=== PATIENT | female | born 1970 | race Caucasian/White ===

== ENCOUNTER 2020-12-20 10:25 | Outpatient (REF) | payer OTHER, SELFPAY ==
[2020-12-20 13:43] LABS: MANUAL DIFF FLAG NO
[2020-12-20 13:58] LABS: Basophils Percent Auto 0.3 % (0-2); Eosinophils Absolute Auto 0.2 X10*3/uL (0.0-0.4); Eosinophils Percent Auto 2.7 % (0-4); Hematocrit 43.4 % (37-47); Hemoglobin 13.9 g/dl (12.0-16.0); Imm Gran Abs Auto 0.04 X10*3/uL (0.00-0.03); Imm Gran Pct Auto 0.4 % (0.0-0.4); Lymphocytes Percent Auto 33.2 % (20-40); Mean Corpuscular Hemoglobin 29.4 pg (27.0-33.0); Mean Corpuscular Volume 91.8 fL (80-98); Mean Platelet Volume 9.1 fL (9.4-12.3); Monocytes Absolute Auto 0.6 X10*3/uL (0.1-1.2); Monocytes Percent Auto 6.1 % (2-11); Neutrophils Absolute Auto 5.2 X10*3/uL (2.0-8.3); Neutrophils Percent Auto 57.3 % (45-73); Platelet Count 381 X10*3/uL (160-400); Red Blood Count 4.73 X10*6/uL (4.20-5.50); Red Cell Distribution Width 13.7 % (11.0-16.0)
[2020-12-20 14:37] LABS: Alanine Aminotransferase 15 U/L (0-31); Albumin Level 4.1 g/dL (3.5-5.0); Alkaline Phosphatase 101 U/L (39-117); Anion Gap 11 (12-20); Aspartate Amino Transferase 17 U/L (5-31); Bilirubin Total 0.5 mg/dL (0.0-1.0); Blood Urea Nitrogen 10 mg/dL (9-16); Calcium 8.8 mg/dL (8.4-10.2); Carbon Dioxide 28 mmol/L (22-29); Chloride 102 mmol/L (96-108); Cholesterol 199 mg/dL; Estimated Glomerular Filt Rate > 60; Glucose Fasting 78 mg/dL (60-99); HDL Cholesterol 40 mg/dL; LDL Cholesterol Calculated 130 mg/dl; Potassium 4.6 mmol/L (3.3-5.1); Sodium 136 mmol/L (135-145); Total Protein 7.1 g/dL (6.5-8.0); Triglycerides 145 mg/dL
[2020-12-20 15:10] LABS: Free T4 (Free Thyroxine) 1.35 ng/dL (0.71-1.85); Thyroid Stimulating Hormone 0.43 uIU/mL (0.32-4.0)
[2020-12-21 05:27] LABS: Thyroid Peroxidase Antibodies 352 IU/mL (<9)
== END 2020-12-20 10:26 | disposition home or self-care (01) ==
LOC: HO.10HDL 10:25
PROVIDERS: Visit Provider Internal Medicine
DX: Z00.00 Encounter for general adult medical examination without abnormal findings (principal); E03.9 Hypothyroidism, unspecified
CPT/HCPCS: 36415; 80053; 80061; 84439; 84443; 85025; 86376

== ENCOUNTER 2021-01-15 15:22 | Outpatient (REF) | payer OTHER, SELFPAY ==
--- NOTE | ~2021-01-15 | MM_ITS ---
EXAMINATION: MM SCREENING DIGITAL BREAST TOMOSYNTHESIS, BILATERAL CLINICAL INFORMATION: Screening. Asymptomatic. The lifetime risk of breast cancer based on the Tyrer-Cuzick Model is 16.4%. COMPARISON: Mammography: 10/27/2019 and studies dating back to 12/01/2011. TECHNIQUE: Digital breast tomosynthesis is performed in both the craniocaudal and mediolateral oblique views along with computer-aided detection (CAD). Synthesized 2D images are generated from the tomosynthesis. FINDINGS: The breasts are heterogeneously dense, which may obscure small masses (ACR BI-RADS breast composition Category c). There is a stable parenchymal pattern of the right breast with no new abnormal dominant mass or suspicious grouping of microcalcifications. Within the anterior lateral aspect of the left breast approximately 3 cm from the nipple there are 2 adjacent rounded densities which in combination measure approximately 8 x 5 mm in size. Spot compression view is recommended and if there is persistence of densities, then ultrasound could be performed. MM/MM tomosynthesis screening BI IMPRESSION: Left breast densities for further evaluation as described. ASSESSMENT: BI-RADS 0: Incomplete - Need Additional Imaging Evaluation RECOMMENDATION: 1. Additional views of the left breast. 2. Targeted ultrasound if warranted after review of the additional views. 3. Radiology department staff will contact the patient for additional imaging. This patient's information was entered into a reminder system with a target due date for their next mammogram.
== END 2021-01-15 15:23 | disposition home or self-care (01) ==
LOC: HO.MAMMO 15:22
PROVIDERS: Visit Provider Internal Medicine
DX: Z12.31 Encounter for screening mammogram for malignant neoplasm of breast (principal)
CPT/HCPCS: 77063; 77067

== ENCOUNTER 2021-01-28 14:51 | Outpatient (REF) | payer OTHER, SELFPAY ==
--- NOTE | ~2021-01-28 | MM_ITS ---
EXAMINATION: MM DIAGNOSTIC DIGITAL BREAST TOMOSYNTHESIS, LEFT US DIAGNOSTIC ULTRASOUND BREAST, LEFT CLINICAL INFORMATION: Recall from screening for asymmetric density anterior lateral left breast. COMPARISON: Mammography: 01/15/2021 and multiple prior exams dating back to 01/26/2013. TECHNIQUE: Digital breast tomosynthesis is performed. 2D images are generated from the tomosynthesis. The following views are obtained: 3-D rolled CC x2, 3-D spot CC Ultrasound left breast is targeted to the outer quadrant anterior breast. Grayscale imaging and color Doppler are performed without and with harmonics FINDINGS: There are scattered areas of fibroglandular density (ACR BI-RADS breast composition Category b). The additional views show no mass or architectural abnormality. Again, there are some fibroglandular densities in the anterior lateral breast, similar to some of the prior exam suggesting shifting fibroglandular tissue. Ultrasound demonstrates a 0.3 cm cyst with some low-level internal echoes 2:00 position 5 cm from nipple. There is increased through-transmission of sound. No associated color flow. No solid mass or architectural abnormality. Results are discussed with the patient at time of visit. The finding on recent imaging is likely related to shifting fibroglandular densities. No definite changes from prior studies. As a precaution, patient will be reassessed again in 6 months to exclude remote possibility of an occult developing density. MM/MM tomosynthesis added views L IMPRESSION: 1. Additional views show no mass or architectural abnormality. Suspect shifting fibroglandular densities in the area of recall. 2. Ultrasound shows incidental 3 mm cyst 2:00 position 5 cm from nipple. ASSESSMENT: BI-RADS 3: Probably Benign RECOMMENDATION: Diagnostic left mammography in 6 months. This patient's information was entered into a reminder system with a target due date for their next mammogram.
== END 2021-01-28 14:52 | disposition home or self-care (01) ==
LOC: HO.MAMMO 14:51
PROVIDERS: PCP Internal Medicine; Visit Provider Internal Medicine
DX: R92.2 Inconclusive mammogram (principal)
CPT/HCPCS: 76642; 77061; 77065

== ENCOUNTER 2021-04-22 13:55 | Outpatient (REF) | payer OTHER, SELFPAY ==
--- NOTE | ~2021-04-22 | XR_ITS ---
EXAMINATION: XR PELVIS CLINICAL INFORMATION: Pain. COMPARISON: Lumbar radiographs 04/22/2021, CT abdomen and pelvis 05/07/2020 TECHNIQUE: AP view of the pelvis. FINDINGS: There is no fracture or destructive process. The sacroiliac joints are normal. There is no subchondral sclerosis or erosive change or ankylosis. There is borderline osteitis pubis. The hip show no joint narrowing or erosive change. XR/XR pelvis 1-2V IMPRESSION: Mild osteitis pubis.
--- NOTE | ~2021-04-22 | XR_ITS ---
EXAMINATION: XR LUMBOSACRAL SPINE CLINICAL INFORMATION: Low back pain COMPARISON: Lumbar radiographs 06/09/2016, CT abdomen and pelvis 05/07/2020 TECHNIQUE: Three views of the lumbosacral spine. FINDINGS: There is normal lumbar segmentation with 5 nonrib-bearing lumbar vertebrae of normal height and normal lumbar lordosis. There is no interval lumbar vertebral compression, spondylolisthesis or interval disc narrowing. There is minor scarring anterior inferior L1 vertebral body similar to CT 2020. There are degenerative changes involving L5-S1 facets, greater on the right. The SI joints and visualized sacrum are unremarkable. There are surgical clips right upper quadrant abdomen likely from prior cholecystectomy. An IUD is seen overlying the central pelvis. XR/XR lumbar spine 2-3V IMPRESSION: 1. 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 2. No lumbar vertebral compression, spondylolisthesis, or disc narrowing.
[2021-04-22 15:08] LABS: C Reactive Protein 1.96 mg/dL (< or = 0.50)
[2021-04-22 16:00] LABS: Vitamin B12 711 pg/mL (200-900)
== END 2021-04-22 13:56 | disposition home or self-care (01) ==
LOC: HO.LAB 13:55
PROVIDERS: PCP Internal Medicine; Visit Provider Internal Medicine
DX: M54.5 Low back pain (principal); M53.3 Sacrococcygeal disorders, not elsewhere classified
CPT/HCPCS: 36415; 72100; 72170; 82607; 86140

== ENCOUNTER 2021-07-30 13:53 | Outpatient (REF) | payer OTHER, SELFPAY ==
--- NOTE | ~2021-07-30 | US_ITS ---
EXAMINATION: US DIAGNOSTIC ULTRASOUND BREAST, LEFT CLINICAL INFORMATION: Six-month follow-up density. COMPARISON: Mammography of same day and ultrasound of January 28, 2021 as well as mammography dating back to August 28, 2009. TECHNIQUE: Ultrasound of the breast is performed with real-time broderick scale imaging and color Doppler. FINDINGS: Targeted left breast ultrasound about the upper outer aspect of the left breast did not demonstrate any suspicious abnormal cystic or solid masses or region of abnormal distal sound shadowing. There is again noted to be an approximately 4 mm cyst. Results are discussed with the patient at time of visit. US/US breast LT limited IMPRESSION: There is generally increase in parenchymal density throughout the left breast with no specific mass appreciated Ultrasound evaluation upper outer aspect of the left breast again demonstrates a cyst with no suspicious lesion identified. Recommend bilateral mammography in 6 months for further follow-up. ASSESSMENT: BI-RADS 3: Probably Benign RECOMMENDATION: Diagnostic mammography in 6 months.
--- NOTE | ~2021-07-30 | MM_ITS ---
EXAMINATION: MM DIAGNOSTIC DIGITAL BREAST TOMOSYNTHESIS, LEFT US BREAST TARGETED, LEFT CLINICAL INFORMATION: Six-month followup left breast density. The lifetime risk of breast cancer based on the Tyrer-Cuzick Model is 16.7%. COMPARISON: Mammography: 01/28/2021 and studies dating back to 08/28/2009 TECHNIQUE: Digital breast tomosynthesis is performed in both the craniocaudal and mediolateral oblique views along with computer-aided detection (CAD). Synthesized 2-D images are generated from the tomosynthesis. Targeted left breast ultrasound. FINDINGS: The breasts are heterogeneously dense, which may obscure small masses (ACR BI-RADS breast composition Category c). There is a generalized increase in breast parenchymal density compared to some previous studies with some noted waxing and waning of breast density over time. No new abnormal dominant masses are appreciated. On tomosynthesis, regions of questioned architectural distortion are seen to represent superimposition of fibroglandular tissue rather than true distortion. Targeted left breast ultrasound about the upper outer aspect of the left breast did not demonstrate any suspicious abnormal cystic or solid masses or region of abnormal distal sound shadowing. There is again noted to be an approximately 4 mm cyst. Results are discussed with the patient at time of visit. MM/MM tomosynthesis diagnostic LT IMPRESSION: There is some general increase in parenchymal density throughout the left breast with no specific mass appreciated Ultrasound evaluation upper outer aspect of the left breast again demonstrates a cyst with no suspicious lesion identified. Recommend bilateral mammography in 6 months for further followup. ASSESSMENT: BI-RADS 3: Probably Benign. RECOMMENDATION: Diagnostic mammography in 6 months. This patient's information was entered into a reminder system with a target due date for their next mammogram.
== END 2021-07-30 13:54 | disposition home or self-care (01) ==
LOC: HO.MAMMO 13:53
PROVIDERS: Visit Provider Internal Medicine
DX: R92.2 Inconclusive mammogram (principal)
CPT/HCPCS: 76642; 77061; 77065

== ENCOUNTER 2022-01-29 08:25 | Outpatient (REF) | payer OTHER, SELFPAY ==
--- NOTE | ~2022-01-29 | MM_ITS ---
EXAMINATION: MM DIAGNOSTIC DIGITAL BREAST TOMOSYNTHESIS, BILATERAL CLINICAL INFORMATION: Due for yearly. Also follow-up probable benign parenchymal asymmetry anterior lateral left breast. The lifetime risk of breast cancer based on the Tyrer-Cuzick Model is 15%. COMPARISON: Mammography: 07/30/2021, 01/28/2021, 01/15/2021 and prior exams dating back to 01/26/2013. Targeted ultrasound left breast 07/30/2021, 01/28/2021. TECHNIQUE: Digital breast tomosynthesis is performed in both the craniocaudal and mediolateral oblique views along with computer-aided detection (CAD). Synthesized 2D images are generated from the tomosynthesis. FINDINGS: There are scattered areas of fibroglandular density (ACR BI-RADS breast composition Category b). Parenchymal pattern is similar to prior studies. There are scattered shifting fibroglandular parenchymal densities overall similar to prior studies dating back to 2012. There is no developing density or interval mass or architectural abnormality. No abnormal calcifications. The axilla and skin contours are unremarkable. Results are provided to the patient at time of visit by the technologist. MM/MM tomosynthesis diagnostic BI IMPRESSION: -No mammographic evidence of malignancy. -No significant changes from prior exams. ASSESSMENT: BI-RADS 2: Benign RECOMMENDATION: Routine annual mammography screening. This patient's information was entered into a reminder system with a target due date for their next mammogram.
== END 2022-01-29 08:26 | disposition home or self-care (01) ==
LOC: HO.MAMMO 08:25
PROVIDERS: PCP Internal Medicine; Visit Provider Internal Medicine
DX: R92.2 Inconclusive mammogram (principal)
CPT/HCPCS: 77062; 77066

== ENCOUNTER 2022-04-21 06:06 | Outpatient (REF) | payer OTHER, SELFPAY ==
[2022-04-21 11:32] LABS: MANUAL DIFF FLAG NO
[2022-04-21 11:48] LABS: Basophils Percent Auto 0.5 % (0-2); Eosinophils Absolute Auto 0.3 X10*3/uL (0.0-0.4); Hematocrit 42.7 % (37.0-47.0); Hemoglobin 13.6 g/dl (12.0-16.0); Imm Gran Abs Auto 0.04 X10*3/uL (0.00-0.03); Imm Gran Pct Auto 0.5 % (0.0-0.4); Lymphocytes Absolute Auto 2.9 X10*3/uL (1.2-4.9); Lymphocytes Percent Auto 33.6 % (20-40); Mean Corpuscular HGB Conc 31.9 g/dl (31.0-35.0); Mean Corpuscular Volume 94.3 fL (80.0-98.0); Mean Platelet Volume 9.4 fL (9.4-12.3); Monocytes Absolute Auto 0.5 X10*3/uL (0.1-1.2); Monocytes Percent Auto 5.9 % (2-11); Neutrophils Absolute Auto 4.7 x10*3/uL (2.0-8.3); Neutrophils Percent Auto 55.5 % (45-73); Platelet Count 344 X10*3/uL (160-400); Red Blood Count 4.53 X10*6/uL (4.20-5.50); Red Cell Distribution Width 13.3 % (11.0-16.0); White Blood Count 8.5 X10*3/uL (4.8-10.8)
[2022-04-21 11:53] LABS: Appearance Urine CLOUDY; Color Urine YELLOW; Glucose Urine UA NEG (NEG); Leukocyte Esterase Urine NEG (NEG); Nitrite Urine NEG (NEG); Specific Gravity - Urine 1.025 (1.005-1.025); Urine Blood TRACE (NEG); Urine Ketones NEG (NEG); Urine Protein NEG (NEG-TRACE)
[2022-04-21 12:15] LABS: Amorphous Sediment Urine 2+ /LPF; RBC Urine 0-2 /HPF (0); Squamous Epithelial Cell Urine 2+ /LPF; WBC Urine 0 /HPF (0-4)
[2022-04-21 12:32] LABS: Free T4 (Free Thyroxine) 1.13 ng/dL (0.71-1.85); Thyroid Stimulating Hormone 0.63 uIU/mL (0.32-4.0); Vitamin D 25-OH Total 23.3 ng/mL (>30)
[2022-04-21 13:11] LABS: Alanine Aminotransferase 15 U/L (0-31); Albumin Level 4.1 g/dL (3.5-5.0); Alkaline Phosphatase 93 U/L (39-117); Anion Gap 13 (12-20); Aspartate Amino Transferase 19 U/L (5-31); Bilirubin Total 0.7 mg/dL (0.0-1.0); Blood Urea Nitrogen 16 mg/dL (9-16); Calcium 8.8 mg/dL (8.4-10.2); Carbon Dioxide 24 mmol/L (22-29); Chloride 105 mmol/L (96-108); Cholesterol 197 mg/dL; Estimated Glomerular Filt Rate > 60; Glucose Fasting 101 mg/dL (60-99); HDL Cholesterol 41 mg/dL; LDL Cholesterol Calculated 134 mg/dl; Potassium 4.1 mmol/L (3.3-5.1); Sodium 138 mmol/L (135-145); Total Protein 7.2 g/dL (6.5-8.0); Triglycerides 111 mg/dL
== END 2022-04-21 06:07 | disposition home or self-care (01) ==
LOC: HO.HMGCLDS 06:06
PROVIDERS: PCP Internal Medicine; Visit Provider Internal Medicine
DX: Z00.00 Encounter for general adult medical examination without abnormal findings (principal)
CPT/HCPCS: 36415; 80053; 80061; 81001; 82306; 84439; 84443; 85025

== ENCOUNTER 2022-10-13 10:32 | Outpatient (REF) | payer OTHER, SELFPAY ==
[2022-10-13 11:37] LABS: Influenza A PCR NEGATIVE (Negative); Influenza B PCR NEGATIVE (Negative); Resp Syncy Virus RNA Qual PCR NEGATIVE (Negative); SARS COV2 PCR INHOUSE NEGATIVE (Negative)
== END 2022-10-13 10:33 | disposition home or self-care (01) ==
LOC: HO.LNP 10:32
PROVIDERS: Visit Provider Internal Medicine
DX: Z20.822 Contact with and (suspected) exposure to COVID-19 (principal)
CPT/HCPCS: 0241U

== ENCOUNTER 2023-02-04 08:06 | Outpatient (REF) | payer OTHER, SELFPAY ==
--- NOTE | ~2023-02-04 | MM_ITS ---
EXAMINATION: MM SCREENING DIGITAL BREAST TOMOSYNTHESIS, BILATERAL CLINICAL INFORMATION: Screening. Asymptomatic. The lifetime risk of breast cancer based on the Tyrer-Cuzick Model is 15.0%. COMPARISON: Mammography: January 29, 2022 and studies dating back to April 16, 2014 TECHNIQUE: Digital breast tomosynthesis is performed in both the craniocaudal and mediolateral oblique views along with computer-aided detection (CAD). Synthesized 2D images are generated from the tomosynthesis. FINDINGS: There are scattered areas of fibroglandular density (ACR BI-RADS breast composition Category b). There are no new significant masses, abnormal calcifications, or other abnormalities. Some stable circumscribed densities are seen bilaterally. MM/MM tomosynthesis screening BI IMPRESSION: No significant changes from prior exam. ASSESSMENT: BI-RADS 1: Negative RECOMMENDATION: Routine annual mammography screening. This patient's information was entered into a reminder system with a target due date for their next mammogram.
== END 2023-02-04 08:07 | disposition home or self-care (01) ==
LOC: HO.MAMMO 08:06
PROVIDERS: Referring Provider Obstetrics & Gynecology; Visit Provider Internal Medicine
DX: Z12.31 Encounter for screening mammogram for malignant neoplasm of breast (principal)
CPT/HCPCS: 77063; 77067

== ENCOUNTER 2023-06-09 06:01 | Outpatient (REF) | payer OTHER, SELFPAY ==
[2023-06-09 11:15] LABS: MANUAL DIFF FLAG NO
[2023-06-09 11:41] LABS: Basophils Percent Auto 0.5 % (0-2); Eosinophils Absolute Auto 0.4 X10*3/uL (0.0-0.4); Eosinophils Percent Auto 6.4 % (0-4); Hematocrit 41.1 % (37.0-47.0); Hemoglobin 13.3 g/dl (12.0-16.0); Imm Gran Abs Auto 0.01 X10*3/uL (0.00-0.03); Imm Gran Pct Auto 0.2 % (0.0-0.4); Lymphocytes Absolute Auto 2.2 X10*3/uL (1.2-4.9); Mean Corpuscular HGB Conc 32.4 g/dl (31.0-35.0); Mean Corpuscular Hemoglobin 30.4 pg (27.0-33.0); Mean Corpuscular Volume 93.8 fL (80.0-98.0); Mean Platelet Volume 9.2 fL (9.4-12.3); Monocytes Absolute Auto 0.4 X10*3/uL (0.1-1.2); Monocytes Percent Auto 6.7 % (2-11); Neutrophils Absolute Auto 3.2 x10*3/uL (2.0-8.3); Neutrophils Percent Auto 51.2 % (45-73); Platelet Count 312 X10*3/uL (160-400); Red Blood Count 4.38 X10*6/uL (4.20-5.50); Red Cell Distribution Width 13.1 % (11.0-16.0); White Blood Count 6.2 X10*3/uL (4.8-10.8)
[2023-06-09 12:23] LABS: Alanine Aminotransferase 19 U/L (0-31); Albumin Level 3.8 g/dL (3.5-5.0); Alkaline Phosphatase 85 U/L (39-117); Anion Gap 12 (12-20); Aspartate Amino Transferase 21 U/L (5-31); Bilirubin Total 0.6 mg/dL (0.0-1.0); Blood Urea Nitrogen 12 mg/dL (9-16); Calcium 9.6 mg/dL (8.4-10.2); Carbon Dioxide 25 mmol/L (22-29); Chloride 107 mmol/L (96-108); Cholesterol 215 mg/dL (<200); Estimated Glomerular Filt Rate > 60; Free T4 (Free Thyroxine) 1.09 ng/dL (0.71-1.85); Glucose Fasting 106 mg/dL (60-99); HDL Cholesterol 43 mg/dL (>40); LDL Cholesterol Calculated 147 mg/dL (<100); Potassium 4.3 mmol/L (3.3-5.1); Sodium 140 mmol/L (135-145); Thyroid Stimulating Hormone 0.73 uIU/mL (0.32-4.0); Total Protein 6.9 g/dL (6.5-8.0); Triglycerides 128 mg/dL (<150); Vitamin D 25-OH Total 44.9 ng/mL (>30)
== END 2023-06-09 06:02 | disposition home or self-care (01) ==
LOC: HO.HMGCLDS 06:01
PROVIDERS: PCP Internal Medicine; Visit Provider Internal Medicine
DX: E03.1 Congenital hypothyroidism without goiter (principal); E78.00 Pure hypercholesterolemia, unspecified; E55.9 Vitamin D deficiency, unspecified
CPT/HCPCS: 36415; 80053; 80061; 82306; 84439; 84443; 85025

== ENCOUNTER 2023-06-30 11:47 | Outpatient (REF) | payer OTHER, SELFPAY ==
--- NOTE | ~2023-06-30 | XR_ITS ---
EXAMINATION: XR CERVICAL SPINE CLINICAL INFORMATION: Right hand neuropathy. COMPARISON: None available. TECHNIQUE: 5 views of the cervical spine, inclusive of oblique views, were obtained. FINDINGS: Marked degenerative changes are seen at C5-C6 and to a lesser extent C6-C7. There is disc space narrowing, endplate sclerosis and osteophyte formation. There is reversal of the normal cervical lordosis. There is mild foraminal narrowing at C5-C6 and C6-C7 on the right as well as C5-C6 on the left. No prevertebral soft tissue swelling, fractures or subluxations seen. The lung apices are unremarkable. XR/XR cervical spine 5V IMPRESSION: Degenerative changes at C5-C6 and C6-C7 with foraminal narrowing as described above.
== END 2023-06-30 11:48 | disposition home or self-care (01) ==
LOC: HO.XRAY 11:47
PROVIDERS: PCP Internal Medicine; Visit Provider Internal Medicine
DX: G62.9 Polyneuropathy, unspecified (principal)
CPT/HCPCS: 72050

== ENCOUNTER 2023-07-15 08:34 | Outpatient (REF) | payer OTHER, SELFPAY ==
--- NOTE | 2023-07-15 | EMG_ITS ---
Bilateral median and ulnar motor and sensory studies were performed. Bilateral radial sensory studies were performed and paraspinal muscles were tested with a needle. IMPRESSION: Mild right median neuropathy across carpal tunnel. Otherwise no significant abnormality noted on this testing. MD JEAN Simmons/MYNOR / [id number]
== END 2023-07-15 08:35 | disposition home or self-care (01) ==
LOC: HO.NEURO 08:34
PROVIDERS: PCP Internal Medicine; Visit Provider Internal Medicine
DX: M25.531 Pain in right wrist (principal); M25.532 Pain in left wrist; M50.30 Other cervical disc degeneration, unspecified cervical region
CPT/HCPCS: 95886; 95913

== ENCOUNTER 2023-12-23 06:16 | Outpatient (REF) | payer OTHER, SELFPAY ==
[2023-12-23 12:29] LABS: Cholesterol 202 mg/dL (<200); HDL Cholesterol 40 mg/dL (>40); LDL Cholesterol Calculated 136 mg/dL (<100); Triglycerides 132 mg/dL (<150)
== END 2023-12-23 06:17 | disposition home or self-care (01) ==
LOC: HO.HMGCLDS 06:16
PROVIDERS: PCP Internal Medicine; Visit Provider Internal Medicine
DX: E78.00 Pure hypercholesterolemia, unspecified (principal)
CPT/HCPCS: 36415; 80061

== ENCOUNTER 2024-02-15 12:21 | Outpatient (REF) | payer OTHER, SELFPAY ==
[2024-02-15 13:15] LABS: MANUAL DIFF FLAG NO
[2024-02-15 13:27] LABS: Basophils Percent Auto 0.4 % (0-2); Eosinophils Absolute Auto 0.8 X10*3/uL (0.0-0.4); Hematocrit 42.6 % (37.0-47.0); Hemoglobin 14.2 g/dl (12.0-16.0); Imm Gran Abs Auto 0.02 X10*3/uL (0.00-0.03); Imm Gran Pct Auto 0.2 % (0.0-0.4); Lymphocytes Absolute Auto 3.6 X10*3/uL (1.2-4.9); Mean Corpuscular HGB Conc 33.3 g/dl (31.0-35.0); Mean Corpuscular Hemoglobin 30.4 pg (27.0-33.0); Mean Corpuscular Volume 91.2 fL (80.0-98.0); Mean Platelet Volume 9.1 fL (9.4-12.3); Monocytes Absolute Auto 0.5 X10*3/uL (0.1-1.2); Monocytes Percent Auto 5.6 % (2-11); Neutrophils Absolute Auto 4.5 x10*3/uL (2.0-8.3); Neutrophils Percent Auto 47.8 % (45-73); Platelet Count 368 X10*3/uL (160-400); Red Blood Count 4.67 X10*6/uL (4.20-5.50); Red Cell Distribution Width 13.2 % (11.0-16.0); White Blood Count 9.4 X10*3/uL (4.8-10.8)
[2024-02-15 13:50] LABS: Anion Gap 11 (12-20); Blood Urea Nitrogen 13 mg/dL (9-16); C Reactive Protein 2.17 mg/dL (< or = 0.50); Calcium 9.6 mg/dL (8.4-10.2); Carbon Dioxide 27 mmol/L (22-29); Chloride 106 mmol/L (96-108); Estimated Glomerular Filt Rate > 60; Glucose Random 88 mg/dL (60-115); Lipase 15 U/L (8-78); Magnesium 2.3 mg/dL (1.6-2.6); Sodium 140 mmol/L (135-145)
== END 2024-02-15 12:22 | disposition home or self-care (01) ==
LOC: HO.10HDL 12:21
PROVIDERS: Visit Provider Internal Medicine
DX: R10.32 Left lower quadrant pain (principal)
CPT/HCPCS: 36415; 80048; 82550; 83690; 83735; 85025; 86140

== ENCOUNTER 2024-02-16 09:27 | Outpatient (REF) | payer OTHER, SELFPAY | END 2024-02-16 09:28 | disposition home or self-care (01) | LOC: HO.MAMMO 09:27 | PROVIDERS: PCP Internal Medicine; Visit Provider Internal Medicine | DX: Z12.31 Encounter for screening mammogram for malignant neoplasm of breast (principal) | CPT/HCPCS: 77063; 77067 ==

== ENCOUNTER → 2024-02-16 09:45 | Outpatient (BNV) | payer OTHER, SELFPAY | PROVIDERS: PCP Internal Medicine; Visit Provider Radiology Diagnostic Radiology | DX: Z12.31 Encounter for screening mammogram for malignant neoplasm of breast (principal) | CPT/HCPCS: 77063; 77067 ==

== ENCOUNTER 2024-07-10 06:46 | Outpatient (REF) | payer OTHER, SELFPAY ==
[2024-07-10 10:29] LABS: MANUAL DIFF FLAG NO
[2024-07-10 10:33] LABS: Basophils Percent Auto 0.5 % (0-2); Eosinophils Absolute Auto 0.4 X10*3/uL (0.0-0.4); Eosinophils Percent Auto 6.2 % (0-4); Hematocrit 41.5 % (37.0-47.0); Hemoglobin 13.6 g/dl (12.0-16.0); Imm Gran Abs Auto 0.01 X10*3/uL (0.00-0.03); Imm Gran Pct Auto 0.2 % (0.0-0.4); Lymphocytes Absolute Auto 2.4 X10*3/uL (1.2-4.9); Lymphocytes Percent Auto 38.6 % (20-40); Mean Corpuscular HGB Conc 32.8 g/dl (31.0-35.0); Mean Corpuscular Hemoglobin 30.6 pg (27.0-33.0); Mean Corpuscular Volume 93.5 fL (80.0-98.0); Mean Platelet Volume 9.5 fL (9.4-12.3); Monocytes Absolute Auto 0.4 X10*3/uL (0.1-1.2); Monocytes Percent Auto 6.2 % (2-11); Neutrophils Percent Auto 48.3 % (45-73); Platelet Count 318 X10*3/uL (160-400); Red Blood Count 4.44 X10*6/uL (4.20-5.50); Red Cell Distribution Width 13.6 % (11.0-16.0); White Blood Count 6.1 X10*3/uL (4.8-10.8)
[2024-07-10 11:05] LABS: Alanine Aminotransferase 19 U/L (0-31); Albumin Level 3.9 g/dL (3.5-5.0); Alkaline Phosphatase 91 U/L (39-117); Anion Gap 10 (12-20); Aspartate Amino Transferase 19 U/L (5-31); Bilirubin Total 0.3 mg/dL (0.0-1.0); Blood Urea Nitrogen 14 mg/dL (9-16); Calcium 9.3 mg/dL (8.4-10.2); Carbon Dioxide 27 mmol/L (22-29); Chloride 109 mmol/L (96-108); Cholesterol 194 mg/dL (<200); Estimated Glomerular Filt Rate > 60; Free T4 (Free Thyroxine) 1.24 ng/dL (0.71-1.85); Glucose Fasting 114 mg/dL (60-99); HDL Cholesterol 42 mg/dL (>40); LDL Cholesterol Calculated 128 mg/dL (<100); Potassium 4.4 mmol/L (3.3-5.1); Sodium 142 mmol/L (135-145); Thyroid Stimulating Hormone 1.65 uIU/mL (0.32-4.0); Total Protein 6.9 g/dL (6.5-8.0); Triglycerides 123 mg/dL (<150)
== END 2024-07-10 06:47 | disposition home or self-care (01) ==
LOC: HO.HMGCLDS 06:46
PROVIDERS: PCP Internal Medicine; Visit Provider Internal Medicine
DX: E03.9 Hypothyroidism, unspecified (principal); K21.9 Gastro-esophageal reflux disease without esophagitis
CPT/HCPCS: 36415; 80053; 80061; 84439; 84443; 85025

== ENCOUNTER 2024-08-23 18:20 | Emergency (ER) | payer OTHER, SELFPAY ==
--- NOTE | ~2024-08-23 | CT_ITS ---
EXAMINATION: CT ABDOMEN AND PELVIS WITH CONTRAST CLINICAL INFORMATION: Left lower quadrant pain. COMPARISON: CT dated May 07, 2020 TECHNIQUE: Multidetector volumetric images were obtained from the superior aspect of the liver through the pubic symphysis following administration 85 mL of Omnipaque 350 intravenous contrast without reported immediate complications. Sagittal and coronal reformatted images were obtained on the technologist's workstation. Oral contrast: No This CT examination was performed using dose optimization techniques as appropriate, variously including the following: *Automated exposure control *Adjustment of mA and/or kV according to patient size (this includes techniques or standardized protocols for targeted exams where dose is matched to indication/reason for exam; i.e. extremities or head) *Use of iterative reconstruction technique DLP: 639 mGy-cm FINDINGS: LUNG BASES: A focal patchy and confluent pulmonary groundglass, right lower lobe. No pleural effusion. LIVER, GALLBLADDER, AND BILIARY TREE: Liver measures 18 cm. Decreased enhancement pattern. No focal mass. Main portal veins, hepatic veins and intrahepatic portion of the IVC are patent. Status post cholecystectomy, likely laparoscopic. Common bile duct measures 5 mm. PANCREAS: No focal pancreatic mass. Fatty infiltration, head and uncinate process. Volume loss of the pancreatic parenchyma. No main pancreatic ductal dilatation. No peripancreatic fluid collections. SPLEEN: Measures 11 cm. No focal mass. 1.5 cm nodular lesion likely accessory spleen in the medial aspect of the spleen just above the left adrenal gland.. ADRENAL GLANDS: No nodular lesions. KIDNEYS AND URETERS: No renal mass. No hydronephrosis. Normal enhancement pattern of the renal parenchyma. BLADDER: Fluid-filled. GASTROINTESTINAL TRACT: Abundant stool and fluid in the right hemicolon and transverse colon. No intestinal obstruction pattern. No ascites. No pneumoperitoneum. Appendix is normal. No pneumatosis intestinalis. ABDOMINAL WALL: Small fat-containing umbilical hernia. Diastases abdominal rectus muscles in the periumbilical region. LYMPH NODES: No lymphadenopathy, mesenteric or retroperitoneal. VASCULAR: No aneurysm or dissection, abdominal aorta. PELVIC VISCERA: No gross masses, uterus or adnexa OSSEOUS STRUCTURES: Multilevel lower thoracic and lower lumbar spondylosis. No acute fracture. Bony pelvis is intact. Sclerosis in the sacroiliac joints. CT/CT abdomen pelvis w IV con IMPRESSION: Acute airspace disease/multifocal pneumonia, right lower lung lobe. Discussed with the emergency physician at the time of the interpretation. Hepatomegaly and steatosis. Fleischner guidelines were followed. Electronically signed by: Christian Goldberg MD 08/24/2024 08:54 AM [facility]
--- NOTE | ~2024-08-23 | XR_ITS ---
EXAMINATION: XR CHEST CLINICAL INFORMATION: Fever. COMPARISON: None available. TECHNIQUE: 2 views of the chest were obtained. FINDINGS: Normal appearance of the cardiomediastinal structures. No effusions or pneumothoraces. Normal pattern of pulmonary vasculature. No focal pulmonary consolidation. Cholecystectomy clips noted within the right upper abdominal margin. XR/XR chest 2V IMPRESSION: No cardiopulmonary abnormalities. Lungs clear. Electronically signed by: Basil Soto MD 08/23/2024 11:44 PM [facility]
[2024-08-23 19:30] VITALS: BP 138/88; PULSE 124; RESP 16; TEMP 37.4; O2SAT 93; BMI 30.2
--- NOTE | 2024-08-23 19:33 | ED.GENADULT ---
HPI - General Adult General Chief complaint: General Medical Stated complaint: Fever & headache Time Seen by Provider: 08/24/24 04:02 Source: patient Mode of arrival: ambulatory Limitations: no limitations History of Present Illness ED Provider: Dr. Marcia Coronado HPI narrative: Patient comes to the emergency room complaining left flank pain and left lower quadrant pain for 4 days. Patient has been complaining of nausea vomiting, initially in triage patient denied diarrhea but patient admits that she has been having diarrhea for a few days. Patient states that she had a fever up to 103.0. Denies hematuria or dysuria. Patient denies chest pain or shortness of breath. Related Data Previous Rx's ?Medication ?Instructions ?Recorded amoxicillin 875 mg-potassium 1 tab PO BID 10 days #20 tabs 08/24/24 clavulanate 125 mg tablet azithromycin 250 mg tablet See Rx Instructions PO .COMPLEX #6 08/24/24 tabs Allergies Allergy/AdvReac Type Severity Reaction Status Date / Time Sulfa (Sulfonamide Allergy Unknown RASH Verified 08/23/24 19:32 Antibiotics) [SULFA (SULFONAMIDE ANTIBIOTICS)] sulfa drugs Allergy Unknown rash, flu Uncoded 06/12/20 00:00 sx Review of Systems Review of Systems: Constitutional : No Weight loss, complaining of fever and chills, No Night Sweats, No Fatigue, No Malaise ENT/Mouth : No Hearing loss, No Ear Pain, No Nasal Congestion, No Sinus Pain, No Hoarseness, No sore throat, No Rhinorrhea, No Swallowing Difficulty Eyes: No Eye Pain, No Swelling, No Redness, No Foreign Body, No Discharge, No Vision Changes Cardiovascular : No Chest Pain, No SOB, No Dyspnea on Exertion, No Orthopnea, No Edema, No Palpitations Respiratory : No Cough, No Sputum, No Wheezing, No Smoke Exposure, No Dyspnea Gastrointestinal : Complaining of nausea, no vomiting, complaining of diarrhea No Constipation, complaining of left flank and left lower quadrant pain Genitourinary : no irregular bleeding, No Dysuria, No Urinary Frequency, No Hematuria, No Urinary Incontinence, No Urgency, complaining of left Flank Pain, No Urinary Flow Changes, No Hesitancy Musculoskeletal : No joint pain, No Myalgias, No Joint Swelling Skin : No Skin Lesions, No rash Neuro : No Weakness, No Numbness, No Paresthesias, No Loss of Consciousness, No Dizziness, No Headache Psych : No Anxiety/Panic, No Depression, No SI/HI/AH/VH, No Social Issues, Heme/Lymph: No Bruising, No Bleeding,No Lymphadenopathy Endocrine : No Polyuria, No Polydipsia, No Temperature Intolerance [facility] Social History Social History Alcohol intake: current Alcohol intake frequency: a few times a month Alcohol type: wine and hard liquor Smoked in Last 30 Days: No Use of substances other than those prescribed or required for medical reasons: No Advance Directives: No Advance Directives Information Provided: No Do you have a plan to hurt others: No Plan Patient : No Physical Exam ED Vital Signs: Vital Signs - 24 hr 08/23/24 19:30 08/23/24 20:58 08/23/24 22:27 Temperature 99.3 F 101.6 F H 99.1 F Pulse Rate 124 H 118 H 99 Respiratory Rate 16 15 14 Blood Pressure 138/88 120/76 119/60 Pulse Oximetry 93 93 Oxygen Delivery Method Room Air Room Air Room Air 08/23/24 23:50 08/24/24 02:56 08/24/24 06:00 Temperature 99.1 F 98.2 F Pulse Rate 95 88 Respiratory Rate 14 18 Blood Pressure 119/72 118/75 Pulse Oximetry 95 94 Oxygen Delivery Method Room Air Room Air BMI result Body Mass Index 30.2 Const Other: Appearance: Alert. Oriented X3. No acute distress. Patient looks uncomfortable Eyes: Pupils equal, round and reactive to light. ENT: Pharynx normal. Neck: Normal inspection. Neck supple. No lymph nodes noted. No crepitus CVS: Normal heart rate and rhythm. Pulses normal. Normal S1 and S2 Respiratory: No respiratory distress. Breath sounds normal. No Wheezing. No rales Abdomen: Soft, tenderness to palpation in left lower quadrant and left flank with mild CVA tenderness. Skin: Skin warm and dry. Normal skin color. Normal skin turgor. Extremities: No lower extremity edema. No Lacerations. No Rash Neuro: Oriented X 3. No motor deficit. No sensory deficit. Moving all extremities. No slurred speech. CN 2 through 12 grossly intact Psych: calm, cooperative, normal affect Course Course Course Narrative: This is a Rapid Medical Examination (RME) performed by Nadeem Palencia PA-C in triage. Full HPI, ROS, assessment and treatment plan per primary provider in the Main ED. 54 yo female here for eval of HARRIS, fevers (tmax 101.5), L flank pain, nausea and one episode of vomiting yesterday. no urinary symptoms. taking Tylenol w/o relief - took last at 1400. + satting 92% on RA, no hx of lung disease. tachycardic. temp 99 after tylenol. Plan: labs, viral swabs, UA, cxr, ekg Reevaluation(s) Reevaluation #1: 1812 Francia Ruelas PA-C ---> Patient's CT showed PNA. Antibiotics prescribed. Patient cleared for discharge. Medications Administered Discontinued Medications Generic Name Dose Route Start Last Admin Trade Name Freq PRN Reason Stop Dose Admin Acetaminophen 975 mg 08/23/24 21:02 08/23/24 21:07 Acetaminophen 325 Mg Tablet PO 08/23/24 21:03 975 mg ONCE ONE Administration Levofloxacin 500 mg in 100 mls @ 100 mls/hr 08/24/24 04:42 08/24/24 06:22 Levaquin IV 08/24/24 05:41 Infused ONCE ONE Infusion Sodium Chloride 1,000 mls @ 999 mls/hr 08/24/24 04:42 08/24/24 06:22 Ns IVCONT 08/24/24 05:42 Infused .Q1H1M ONE Infusion Morphine Sulfate 4 mg 08/24/24 04:42 08/24/24 05:01 Morphine Sulfate 4 Mg/Ml Cartridge IVPUSH 08/24/24 04:43 4 mg ONCE ONE Administration Protocol Ondansetron HCl 4 mg 08/24/24 04:42 08/24/24 05:01 Ondansetron Hcl 4 Mg/2 Ml Vial IVPUSH 08/24/24 04:43 4 mg ONCE ONE Administration Medical Decision Making Medical Decision Making MDM Narrative: My interpretation of labs: Patient has leukocytosis 14.2, which is elevated for the patient's baseline, chemistry within normal limits, lactic acid normal, LFTs and lipase normal -urinalysis is positive for leukocyte esterase, has bacteria in the urine, a moderate amount of white blood cells. Given the patient's symptoms, we will go ahead and treat with antibiotics. -patient states that she has no history of diverticulitis. However, patient states that over last few days she has been in touch with her PCP and they were suspecting possible diverticulosis/diverticulitis. Patient admits that she has been having diarrhea for couple of days. Patient receiving IV fluids, levofloxacin, Toradol, Zofran -CT scan of the abdomen pelvis pending. Clinically, patient has pyelonephritis. CT scan pending to rule out diverticulitis. -patient received IV levofloxacin, patient has not received metronidazole yet. Pending on CT scan Sign-out given to my colleague PEDRO King Differential Diagnosis Differential Diagnoses: The differential diagnosis associated with the presentation includes (UTI, pyelonephritis, diverticulitis) Admission/Observation Consideration of admission/observation: Escalation of care including admission/observation considered (Given patient's initial presentation, observation has been considered) Lab Data MDM Lab Attestation statement: I reviewed the patient's lab results. 08/23/24 19:45 08/23/24 19:45 Labs: Lab Results 08/23/24 08/23/24 08/24/24 Range/Units 19:45 21:29 00:21 WBC 14.2 H (4.8-10.8) X10*3/uL RBC 4.95 (4.20-5.50) X10*6/uL Hgb 15.2 (12.0-16.0) g/dl Hct 44.5 (37.0-47.0) % MCV 89.9 (80.0-98.0) fL MCH 30.7 (27.0-33.0) pg MCHC 34.2 (31.0-35.0) g/dl RDW 13.3 (11.0-16.0) % Plt Count 316 (160-400) X10*3/uL MPV 8.8 L (9.4-12.3) fL Immature Gran % (Auto) 0.6 H (0.0-0.4) % Neut % (Auto) 82.2 H (45-73) % Lymph % (Auto) 9.8 L (20-40) % [place] % (Auto) 7.0 (2-11) % Eos % (Auto) 0.0 (0-4) % Baso % (Auto) 0.4 (0-2) % Lymph # (Auto) 1.4 (1.2-4.9) X10*3/uL [place] # (Auto) 1.0 (0.1-1.2) X10*3/uL Eos # (Auto) 0.0 (0.0-0.4) X10*3/uL Baso # (Auto) 0.1 (0.0-0.2) X10*3/uL Abs Immat Gran (auto) 0.08 H (0.00-0.03) X10*3/uL Absolute Neuts (auto) 11.7 H (2.0-8.3) x10*3/uL Absolute Nucleated RBC 0.000 (0.0-0.012) X10*3/uL Nucleated RBC % (auto) 0.0 (0.0-0.2) /100WBC Sodium 136 (135-145) mmol/L Potassium 4.3 (3.3-5.1) mmol/L Chloride 103 (96-108) mmol/L Carbon Dioxide 22 (22-29) mmol/L Anion Gap 15 (12-20) BUN 13 (9-16) mg/dL Creatinine 0.99 (0.5-1.4) mg/dL Estim Creat Clear Calc 65.6 Estimated GFR 58 Random Glucose 126 H (60-115) mg/dL Lactic Acid 0.9 (0.5-2.0) mmol/L Calcium 9.9 D (8.4-10.2) mg/dL Magnesium 2.1 (1.6-2.6) mg/dL Total Bilirubin 0.5 (0.0-1.0) mg/dL AST 28 (5-31) U/L ALT 24 (0-31) U/L Alkaline Phosphatase 107 (39-117) U/L Total Protein 7.9 (6.5-8.0) g/dL Albumin 4.2 (3.5-5.0) g/dL Lipase 9 (8-78) U/L Urine Color Yellow Urine Appearance Clear Urine pH 6.0 (5.0-9.0) Ur Specific [place] 1.020 (1.005-1.025) Urine Protein Negative (Neg-Trace) mg/dL Urine Glucose (UA) Negative (Negative) mg/dL Urine Ketones 15 (Negative) mg/dL Urine Blood Negative (Negative) Urine Nitrite Negative (Negative) Ur Leukocyte Esterase Moderate (2+) H (Negative) Urine RBC 0-2 (0-2) /HPF Urine WBC 6-10 (0-5) /HPF Ur Squamous Epith Cells 3-5 (0-2) /HPF Urine Bacteria 2+ (None Seen) Hyaline Casts 0-2 (0-2) /LPF Influenza Type A (PCR) NEGATIVE (Negative) Influenza Type B (PCR) NEGATIVE (Negative) RSV RNA Qual (PCR) NEGATIVE (Negative) SARS-CoV-2 RNA (RT-PCR) NEGATIVE (Negative) Independent Interpretation I performed an independent interpretation of an: Plain X-Ray Radiology Impression Discussion of test interpretation with radiology: I have reviewed the radiologist's reading. Radiologist Impression: Normal appearance of the cardiomediastinal structures. No effusions or pneumothoraces. Normal pattern of pulmonary vasculature. No focal pulmonary consolidation. Cholecystectomy clips noted within the right upper abdominal margin. XR/XR chest 2V IMPRESSION: No cardiopulmonary abnormalities. Lungs clear. Discharge Plan Discharge Clinical Impression: Pneumonia Patient Disposition: Home, Self-Care Instructions: Community Acquired Pneumonia (DC) Additional Instructions: Please follow-up with your primary care physician tomorrow. If you have any worsening or new symptoms, please return to the emergency room or call 911 Prescriptions: New azithromycin 250 mg tablet See Rx Instructions .ROUTE .COMPLEX Qty: 6 0RF Rx Instructions: For 250 mg dose pack: take 500 mg today (day 1), then 250 mg for 4 days (days 2-5) amoxicillin-pot clavulanate 875-125 mg tablet 1 tab PO BID 10 Days Qty: 20 0RF Referrals: Nicko Zheng MD [Primary Care Provider] - Stand Alone Forms: Work/School Release Print Language: Amharic
--- NOTE | 2024-08-23 19:34 | ECG_ITS ---
Test Reason : TACHYCARDIA Blood Pressure : / mmHG Vent. Rate : 118 BPM Atrial Rate : 118 BPM P-R Int : 132 ms QRS Dur : 082 ms QT Int : 298 ms P-R-T Axes : 043 -11 059 degrees QTc Int : 417 ms Sinus tachycardia Possible Left atrial enlargement Cannot rule out Anterior infarct , age undetermined Abnormal ECG No previous ECGs available Referred By: Sri Palencia Electronically Signed By:JORGE SWENSON MD
[2024-08-23 19:49] LABS: MANUAL DIFF FLAG NO
[2024-08-23 20:05] LABS: Basophils Absolute Auto 0.1 X10*3/uL (0.0-0.2); Basophils Percent Auto 0.4 % (0-2); Hematocrit 44.5 % (37.0-47.0); Hemoglobin 15.2 g/dl (12.0-16.0); Imm Gran Abs Auto 0.08 X10*3/uL (0.00-0.03); Imm Gran Pct Auto 0.6 % (0.0-0.4); Lymphocytes Absolute Auto 1.4 X10*3/uL (1.2-4.9); Lymphocytes Percent Auto 9.8 % (20-40); Mean Corpuscular HGB Conc 34.2 g/dl (31.0-35.0); Mean Corpuscular Hemoglobin 30.7 pg (27.0-33.0); Mean Corpuscular Volume 89.9 fL (80.0-98.0); Mean Platelet Volume 8.8 fL (9.4-12.3); Neutrophils Absolute Auto 11.7 x10*3/uL (2.0-8.3); Neutrophils Percent Auto 82.2 % (45-73); Platelet Count 316 X10*3/uL (160-400); Red Blood Count 4.95 X10*6/uL (4.20-5.50); Red Cell Distribution Width 13.3 % (11.0-16.0); White Blood Count 14.2 X10*3/uL (4.8-10.8)
[2024-08-23 20:06] LABS: Alanine Aminotransferase 24 U/L (0-31); Albumin Level 4.2 g/dL (3.5-5.0); Alkaline Phosphatase 107 U/L (39-117); Anion Gap 15 (12-20); Aspartate Amino Transferase 28 U/L (5-31); Bilirubin Total 0.5 mg/dL (0.0-1.0); Blood Urea Nitrogen 13 mg/dL (9-16); Calcium 9.9 mg/dL (8.4-10.2); Carbon Dioxide 22 mmol/L (22-29); Chloride 103 mmol/L (96-108); Creatinine Clr Calc Pharmacy 65.6; Estimated Glomerular Filt Rate 58; Glucose Random 126 mg/dL (60-115); Lipase 9 U/L (8-78); Magnesium 2.1 mg/dL (1.6-2.6); Potassium 4.3 mmol/L (3.3-5.1); Sodium 136 mmol/L (135-145); Total Protein 7.9 g/dL (6.5-8.0)
[2024-08-23 20:30] LABS: Influenza A PCR NEGATIVE (Negative); Influenza B PCR NEGATIVE (Negative); Resp Syncy Virus RNA Qual PCR NEGATIVE (Negative); SARS COV2 PCR INHOUSE NEGATIVE (Negative)
[2024-08-23 20:58] VITALS: BP 120/76; PULSE 118; RESP 15; TEMP 38.7
[2024-08-23] MEDS: Acetaminophen 325 MG TABLET 975 MG PO (21:07)
--- NOTE | 2024-08-23 21:51 | PC.NURSE ---
Providers made aware of pt and currently labs/vitals and requested to be seen for possible sepsis alert at this time.
[2024-08-23 21:58] LABS: Lactic Acid 0.9 mmol/L (0.5-2.0)
[2024-08-23 22:27] VITALS: BP 119/60; PULSE 99; RESP 14; TEMP 37.3; O2SAT 93
[2024-08-23 23:50] VITALS: TEMP 37.3
--- NOTE | 2024-08-23 23:51 | PC.NURSE ---
Report taken from Berta HA assumed care of pt at this time. Pt A&Ox3 skin pwd respirations even unlabored, resting on stretcher. Reports some relief from previously administered pain med. Current headache 03/27. Afebrile, T 99.1f. Awaiting primary provider kimmyal, aware of plan.
[2024-08-24 00:28] LABS: Appearance Urine Clear; Color Urine Yellow; Glucose Urine UA Negative (Negative); Leukocyte Esterase Urine Moderate (2+) (Negative); Nitrite Urine Negative (Negative); UMIC TRIGGER UACC YES; Urine Blood Negative (Negative); Urine Ketones 15 mg/dL (Negative); Urine Protein Negative (Neg-Trace)
[2024-08-24 00:35] LABS: Bacteria Urine 2+ (None Seen); Hyaline Casts Urine 0-2 /LPF (0-2); RBC Urine 0-2 /HPF (0-2); UACC Culture Trigger YES
[2024-08-24 02:56] VITALS: BP 119/72; PULSE 95; RESP 14; O2SAT 95
--- NOTE | 2024-08-24 03:01 | PC.NURSE ---
Pt resting on stretcher skin pwd respirations even unlabored, continued headache. Continues to await primary provider eval, out to speak to nurse several times asking when pt will be seen.
--- NOTE | 2024-08-24 04:31 | PC.NURSE ---
Provider to bedside for primary eval, plan for CT.
[2024-08-24] MEDS: ondansetron HCL 4 MG/2 ML VIAL IVPUSH (05:01)
[2024-08-24] MEDS: 0.9 % Sodium Chloride 1,000 ML 999 ML IVCONT (05:01)
[2024-08-24] MEDS: Morphine Sulfate 4 MG/ML CARTRIDGE IVPUSH (05:01)
[2024-08-24] MEDS: levoFLOXacin/D5W 500 MG/100 ML PIGGYBACK 100 MG IV (05:01)
--- NOTE | 2024-08-24 05:10 | PC.NURSE ---
Pt medicated per MAR, IVF and IV abx hung and infusing without difficulty. Off floor to CT.
--- NOTE | 2024-08-24 05:17 | PC.NURSE ---
Returned from CT, awaiting results.
[2024-08-24 06:00] VITALS: BP 118/75; PULSE 88; RESP 18; TEMP 36.8; O2SAT 94
--- NOTE | 2024-08-24 06:21 | PC.NURSE ---
Pt resting on stretcher eyes closed,easily awoke. A&Ox3 skin pwd respirations even unlabored. VSS. Reports positive pain relief from previously administered meds. Awaiting CT result, aware of plan of care.
[2024-08-24 09:31] VITALS: BP 141/40; PULSE 91; RESP 16; TEMP 36.8; O2SAT 94
== END 2024-08-24 09:35 | disposition home or self-care (01) ==
PROVIDERS: Emergency Medicine; Physician Assistant Medical; Emergency Provider Emergency Medicine; PCP Internal Medicine
DX: J18.9 Pneumonia, unspecified organism (principal); Z03.818 Encounter for observation for suspected exposure to other biological agents ruled out; R10.32 Left lower quadrant pain; R50.9 Fever, unspecified
CPT/HCPCS: 0241U; 36415; 71046; 74177; 80053; 81001; 83605; 83690; 83735; 85025; 87040; 87086; 93005; 96365; 96366; 96375; 99284; 99285; J1956; J2270; J2405

== ENCOUNTER → 2024-08-23 19:34 | Outpatient (BNV) | payer OTHER, SELFPAY | PROVIDERS: Emergency Provider Emergency Medicine; PCP Internal Medicine; Visit Provider Internal Medicine Cardiovascular Disease | DX: R94.31 Abnormal electrocardiogram [ECG] [EKG] (principal) | CPT/HCPCS: 93010 ==

== ENCOUNTER → 2024-08-24 04:42 | Outpatient (BNV) | payer OTHER, SELFPAY | PROVIDERS: Emergency Provider Emergency Medicine; PCP Internal Medicine; Visit Provider Radiology Diagnostic Radiology | DX: R10.32 Left lower quadrant pain (principal) | CPT/HCPCS: 74177 ==